=== PATIENT | male | born 1980 | race Caucasian/White ===

== ENCOUNTER 2017-05-16 18:20 | Emergency (ER) | payer OTHER ==
[~2017-05-16] VITALS: Ht 177.8 cm; Wt 99.8 kg
[2017-05-16] MEDS ORDERED: FLAGYL500MG (18:52)
[2017-05-16] MEDS ORDERED: CIPRO500 MG/5 M (18:52)
[2017-05-16] MEDS ORDERED: ZANTAC300 MG (18:53)
== END 2017-05-17 01:12 | disposition home or self-care (01) ==
LOC: ER 18:20
DX: K57.92 Diverticulitis of intestine, part unspecified, without perforation or abscess without bleeding (principal); R10.84 Generalized abdominal pain

== ENCOUNTER 2017-06-11 12:15 | Inpatient (IN) | payer OTHER ==
[~2017-06-11 12:15] MED LIST: CIPRO500 MG/5 M; FLAGYL500MG; ZANTAC300 MG
[2017-06-19] MEDS ORDERED: HYOSCYAMINE0.125 M1 SL (16:39)
[2017-06-19] MEDS ORDERED: PERCOCET 5-3251 EACH PO (16:39)
[2017-06-19] MEDS ORDERED: Intestinex CAP PO (16:39)
== END 2017-06-19 18:02 | disposition home or self-care (01) | DRG 331 ==
LOC: O/R 06-16 05:51 → SURH 06-16 05:51 → MEDI 06-16 11:40 → SURH 06-16 12:15
PROVIDERS: Surgery
PROC: 0DTP4ZZ Resection of Rectum, Percutaneous Endoscopic Approach (ICD-10-PCS; 2017-06-16)
PROC: 0DJD8ZZ Inspection of Lower Intestinal Tract, Via Natural or Artificial Opening Endoscopic (ICD-10-PCS; 2017-06-16)
PROC: 4A033R1 Measurement of Arterial Saturation, Peripheral, Percutaneous Approach (ICD-10-PCS; 2017-06-16)
PROC: 4A12X4Z Monitoring of Cardiac Electrical Activity, External Approach (ICD-10-PCS; 2017-06-16)
PROC: 0DTN4ZZ Resection of Sigmoid Colon, Percutaneous Endoscopic Approach (ICD-10-PCS; principal; 2017-06-16 10:15)
DX: K57.32 Diverticulitis of large intestine without perforation or abscess without bleeding (principal); G47.33 Obstructive sleep apnea (adult) (pediatric)